=== PATIENT | male | born 1955 | race Caucasian/White ===

== ENCOUNTER 2019-09-18 18:17 | Emergency (ER) | payer BC ==
--- NOTE | 2019-09-18 18:36 | EDM.PDOC ---
ED HPI GENERAL MEDICAL PROBLEM - General Chief Complaint: Cardiovascular Problem Stated Complaint: HEART PALPITATION Time Seen by Provider: 09/18/19 18:23 Source of Information: Reports: Patient History Limitations: Reports: No Limitations - History of Present Illness INITIAL COMMENTS - FREE TEXT/NARRATIVE: Ibrahima Garcia is a 64-year-old male who presents the emergency room with chief complaints of palpitations. Patient reports his symptoms started about 3 days ago. He reports feeling like his heart "is skipping a beat." He denies any fever, chills chest pain, shortness of breath, dizziness or syncopal episodes. Does report feeling weakness at times and shakiness. He does have a history of dizziness and reports having a heart ablation in the past. No apparent distress at this time. Onset Date: 09/15/19 Duration: Intermittent Location: Reports: Chest Quality: Reports: Other (fluttering sensation) Improves with: Reports: None Worsens with: Reports: None Associated Symptoms: Denies: Confusion, Chest Pain, Cough, Fever/Chills, Nausea/ Vomiting, Shortness of Breath - Related Data Allergies Allergy/AdvReac Type Severity Reaction Status Date / Time No Known Allergies Allergy Verified 04/22/14 15:20 Home Meds: Home Meds Aspirin [Low Dose Aspirin EC] 1 tab PO DAILY 12/16/13 [History] Lisinopril/Hydrochlorothiazide [Lisinopril-Hctz 20-12.5 mg Tab] 1 tab PO DAILY 12/16/13 [History] Meclizine [Antivert] 25 mg PO TID PRN #30 tab 12/16/13 [Rx] Omeprazole 20 mg PO DAILY 12/16/13 [History] Ondansetron [Zofran ODT] 4 mg PO Q6H PRN #10 tab.dis 12/16/13 [Rx] amLODIPine [Norvasc] 5 mg PO DAILY 12/16/13 [History] atenoloL [Atenolol] 100 mg PO BEDTIME 12/16/13 [History] atorvaSTATin [Lipitor] 10 mg PO DAILY 12/16/13 [History] Social & Family History - Tobacco Use Smoking Status *Q: Current Every Day Smoker Years of Tobacco use: 40 Packs/Tins Daily: 1 - Caffeine Use Caffeine Use: Reports: None ED ROS GENERAL - Review of Systems Review Of Systems: See Below Constitutional: Denies: Fever, Chills HEENT: Reports: No Symptoms Respiratory: Denies: Shortness of Breath Cardiovascular: Reports: Palpitations. Denies: Chest Pain, Lightheadedness, Syncope Endocrine: Denies: Fatigue GI/Abdominal: Reports: No Symptoms : Reports: No Symptoms Musculoskeletal: Denies: Neck Pain, Arm Pain, Back Pain Skin: Reports: No Symptoms Neurological: Reports: No Symptoms. Denies: Dizziness, Headache, Numbness, Syncope Psychiatric: Reports: No Symptoms Hematologic/Lymphatic: Reports: No Symptoms Immunologic: Reports: No Symptoms ED EXAM, GENERAL - Physical Exam Exam: See Below Exam Limited By: No Limitations General Appearance: Alert, WD/WN, No Apparent Distress Neck: Normal Inspection, Supple, Non-Tender, Full Range of Motion Respiratory/Chest: No Respiratory Distress, Lungs Clear, Normal Breath Sounds, No Accessory Muscle Use, Chest Non-Tender Cardiovascular: Normal Peripheral Pulses, Regular Rate, Rhythm, No Edema, No Gallop, No JVD, No Murmur, No Rub, Other (occassional PVCs) GI/Abdominal: Normal Bowel Sounds, Soft, Non-Tender, No Organomegaly, No Distention, No Abnormal Bruit, No Mass, Pelvis Stable Back Exam: Normal Inspection, Full Range of Motion Extremities: Normal Inspection, Normal Range of Motion, Non-Tender, No Pedal Edema, Normal Capillary Refill Neurological: Alert, Oriented, CN II-XII Intact, Normal Cognition, Normal Gait, Normal Reflexes, No Motor/Sensory Deficits Psychiatric: Normal Affect, Normal Mood Skin Exam: Warm, Dry, Intact, Normal Color, No Rash Lymphatic: No Adenopathy EKG INTERPRETATION EKG Date: 09/18/19 Time: 18:24 Rhythm: NSR Rate (Beats/Min): 74 EKG Interpretation Comments: Normal sinus rhythm rate 74 PVCs noted left atrial enlargement anteroseptal infarct age indeterminate. Course - Vital Signs Text/Narrative:: Ibrahiam Garcia is a 64-year-old male who presents the emergency room with chief complaints of palpitations. Patient reports his symptoms started about 3 days ago. He reports feeling like his heart "is skipping a beat." He denies any fever, chills chest pain, shortness of breath, dizziness or syncopal episodes. Does report feeling weakness at times and shakiness. He does have a history of dizziness and reports having a heart ablation in the past. No apparent distress at this time. Will order labs, EKG, chest x-ray to evaluate for electrolyte imbalance or any other abnormal findings. Last Recorded V/S: Last Vital Signs Temp 99.5 F 09/18/19 18:22 Pulse 88 09/18/19 18:22 Resp 20 09/18/19 18:22 BP 149/80 H 09/18/19 18:22 Pulse Ox 98 09/18/19 18:22 - Orders/Labs/Meds Orders: Active Orders 24 hr Category Date Time Status EKG Documentation Completion [RC] STAT Care 09/18/19 18:24 Active Holter Monitor 24 Hours [RC] .PRN Care 09/18/19 19:55 Active Labs: Laboratory Tests 09/18/19 09/18/19 Range/Units 18:36 18:36 WBC 7.37 (4.23-9.07) K/mm3 RBC 4.34 L (4.63-6.08) M/mm3 Hgb 13.4 L D (13.7-17.5) gm/dl Hct 39.6 L (40.1-51.0) % MCV 91.2 (79.0-92.2) fl MCH 30.9 (25.7-32.2) pg MCHC 33.8 (32.2-35.5) g/dl RDW Std Deviation 41.6 (35.1-43.9) fL Plt Count 230 (163-337) K/mm3 MPV 8.4 L (9.4-12.3) fl Neut % (Auto) 51.6 (34.0-67.9) % Lymph % (Auto) 39.6 (21.8-53.1) % [place] % (Auto) 5.0 L (5.3-12.2) % Eos % (Auto) 3.4 (0.8-7.0) Baso % (Auto) 0.4 (0.1-1.2) % Neut # (Auto) 3.80 (1.78-5.38) K/mm3 Lymph # (Auto) 2.92 (1.32-3.57) K/mm3 [place] # (Auto) 0.37 (0.30-0.82) K/mm3 Eos # (Auto) 0.25 (0.04-0.54) K/mm3 Baso # (Auto) 0.03 (0.01-0.08) K/mm3 Sodium 141 (136-145) mEq/L Potassium 3.0 L (3.5-5.1) mEq/L Chloride 106 (98-107) mEq/L Carbon Dioxide 26 (21-32) mEq/L Anion Gap 12.0 (5-15) BUN 10 (7-18) mg/dL Creatinine 1.0 (0.7-1.3) mg/dL Est Cr Clr Drug Dosing 75.61 mL/min Estimated GFR (MDRD) > 60 (>60) mL/min BUN/Creatinine Ratio 10.0 L (14-18) Glucose 245 H (80-115) mg/dL Calcium 8.7 (8.5-10.1) mg/dL Magnesium 1.8 (1.8-2.4) mg/dl Total Bilirubin 0.3 (0.2-1.0) mg/dL AST 15 (15-37) U/L ALT 29 (16-63) U/L Alkaline Phosphatase 86 (46-116) U/L Troponin I < 0.017 (0.00-0.056) ng/mL Total Protein 7.0 (6.4-8.2) g/dl Albumin 3.9 (3.4-5.0) g/dl Globulin 3.1 gm/dL Albumin/Globulin Ratio 1.3 (1-2) Meds: Medications Discontinued Medications Generic Name Dose Route Start Last Admin Trade Name Freq PRN Reason Stop Dose Admin Potassium Chloride 40 meq 09/18/19 19:30 09/18/19 19:35 Klor-Con M20 PO 09/18/19 19:31 40 meq ONETIME ONE Administration - Re-Assessments/Exams Free Text/Narrative Re-Assessment/Exam: 09/18/19 19:38 EKG revealed normal sinus rhythm with occasional PVCs. Chest x-ray reveals an old left upper chest wall pleural calcification as previously seen on CT. WBC 7.37, RBC 4.34, hemoglobin 13.4, hematocrit 39.6, platelet count 230, sodium 141 , potassium 3.0 I will replace with potassium 40 mEq p.o. Chloride 106, CO2 26 , bun 10, creatinine 1.0, glucose 245, calcium 8.7, magnesium 1.8 and troponin is negative at 0.017. 09/18/19 19:49 After reviewing patient's labs EKG chest x-ray feel that his palpitations may be due to hypo-kalemia. I will discharge home with instructions to increase his food intake with potassium such as bananas, potatoes, peanut butter. 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 Instructed patient to return to the emergency room for any new acute worsening symptoms. Patient verbalized understanding and is, plan for discharge. Strict the patient to follow-up with his PCP in reference to his elevated glucose of 245 for further evaluation and management. Departure - Departure Time of Disposition: 19:59 Disposition: Home, Self-Care 01 Clinical Impression: Hypokalemia, Palpitations Referrals: Urban Turcios Jr, MD [Primary Care Provider] - Forms: ED Department Discharge Additional Instructions: You were seen and evaluated today for palpitations. Your EKG revealed sinus rhythm with occasional PVCs which are regular heartbeats. Your chest x-ray was unremarkable it did show the left upper chest calcification which has been seen previously before on chest x-rays and CAT scans. Your lab studies did reveal you have a low potassium level. This can cause you to have irregular heartbeats. You did receive potassium supplement here I recommend that you continue to increase your potassium intake for the next 24 hours such as oranges , bananas, peanut butter and potatoes. Your glucose was elevated to 45 I recommend that you follow-up with Dr. Fink next week for further evaluation of this reading in addition to getting results from your Holter monitor. Follow -up with a wrapping machine tender in [place] for further evaluation treatment of your condition. Return to the emergency room for any new acute worsening symptoms. Sepsis Event Note - Evaluation Sepsis Screening Result: No Definite Risk - Focused Exam Vital Signs: Vital Signs Temp Pulse Resp BP Pulse Ox 09/18/19 18:22 99.5 F 88 20 149/80 H 98 Date Exam was Performed: 09/18/19 Time Exam was Performed: 19:59 - My Orders Last 24 Hours: My Active Orders 09/18/19 18:24 EKG Documentation Completion [RC] STAT 09/18/19 19:55 Holter Monitor 24 Hours [RC] .PRN - Assessment/Plan Last 24 Hours: My Active Orders 09/18/19 18:24 EKG Documentation Completion [RC] STAT 09/18/19 19:55 Holter Monitor 24 Hours [RC] .PRN
--- NOTE | 2019-09-18 19:03 | CR ---
Chest: Portable view of the chest was obtained. Comparison: Prior chest x-ray of 12/16/13. Chest CT of 12/16/13 is also available. Density is noted within the left upper chest most likely due to an area of pleural calcification as seen on the chest CT. Lungs otherwise are clear. Heart size is normal. Tortuous thoracic aorta is noted. Bony structures are grossly intact. Impression: 1. Density is noted within the left upper chest most likely representing an area of pleural calcification as seen on chest CT. 2. Nothing acute is otherwise appreciated on portable chest x-ray. Diagnostic code #3 This report was dictated in MDT
[2019-09-18] MEDS ORDERED: Potassium Chloride 20 MEQ Tab.ER PO ONE (19:30)
== END 2019-09-18 20:38 | disposition home or self-care (01) ==
LOC: JD.ED 18:17
DX: E87.6 Hypokalemia (principal); F17.210 Nicotine dependence, cigarettes, uncomplicated; Z79.899 Other long term (current) drug therapy; Z79.82 Long term (current) use of aspirin
CPT/HCPCS: 36415; 71045; 80053; 83735; 84484; 85025; 93005; 93225; 93226; 99285; A9270; 93010; 99284